=== PATIENT | female | born 1985 | race Caucasian/White ===

== ENCOUNTER → 2017-12-05 | Outpatient (CLI) | payer OTHER ==
--- NOTE | 2017-12-05 09:19 | DIAGNOSTIC IMAGING REPORT ---
RENAL ULTRASOUND HISTORY: N39.0 Urinary tract infection without complication COMPARISON: None. FINDINGS: Right kidney: 11.5 cm. No hydronephrosis. Normal corticomedullary differentiation and cortical thickness. Left kidney: 12.6 cm. No hydronephrosis. Normal corticomedullary differentiation and cortical thickness. Bladder: No bladder wall thickening. The bilateral ureteral jets were identified. IMPRESSION: Normal renal ultrasound. Electronically signed by: Jace Brown M.D. 12/05/2017 9:17 AM Dictated Date/Time: 12/05/2017 9:16 AM
== END | disposition home or self-care (01) ==
LOC: C.ULTR 08:21
PROVIDERS: ATTEND Urology
DX: N39.0 Urinary tract infection, site not specified (principal)